=== PATIENT | male | born 1940 | race Caucasian/White ===

== ENCOUNTER 2022-11-03 06:05 | Observation (INO) ==
--- NOTE | 2022-09-29 13:05 | PAT Medication Instructions ---
Medication Instructions Date of Service September 29, 2022 Home Medications carvedilol 6.25 mg tablet 6.25 mg PO BID cholecalciferol (vitamin D3) 50 mcg (2,000 unit) capsule (Vitamin D3) 50 mcg PO HS clopidogrel 75 mg tablet 75 mg PO QAM hydrocodone 10 mg-acetaminophen 325 mg tablet 0.5 tab PO TID PRN levothyroxine 50 mcg tablet 50 mcg PO QAM losartan 25 mg tablet 25 mg PO QAM multivitamin 1 tab PO QAM niacin 500 mg tablet 500 mg PO QPM rivaroxaban 10 mg tablet (Xarelto) 10 mg PO QAM rosuvastatin 10 mg tablet 10 mg PO HS ASK your prescriber and surgeon clopidogrel 75 mg tablet 75 mg PO QAM(in order for spinal or epidural anesthesia, Plavix needs to be stopped 7 days before surgery. Please check if okay with doctor that prescribes this to you) rivaroxaban 10 mg tablet (Xarelto) 10 mg PO QAM(in order for spinal or epidural anesthesia, Xarelto needs to be stopped 72 hours/3 days before surgery. Please check if okay with doctor that prescribes this to you) STOP taking 48 hours before surgery niacin 500 mg tablet 500 mg PO QPM DO NOT take the morning of surgery losartan 25 mg tablet 25 mg PO QAM multivitamin 1 tab PO QAM Take morning of surgery With a small sip of water, OTHERWISE NOTHING TO EAT OR DRINK AFTER MIDNIGHT: carvedilol 6.25 mg tablet 6.25 mg PO BID hydrocodone 10 mg-acetaminophen 325 mg tablet 0.5 tab PO TID PRN(if needed) levothyroxine 50 mcg tablet 50 mcg PO QAM Take evening before surgery carvedilol 6.25 mg tablet 6.25 mg PO BID cholecalciferol (vitamin D3) 50 mcg (2,000 unit) capsule (Vitamin D3) 50 mcg PO HS hydrocodone 10 mg-acetaminophen 325 mg tablet 0.5 tab PO TID PRN(if needed) rosuvastatin 10 mg tablet 10 mg PO HS Other Notes If you have any questions please call us at [phone] or [phone] or [phone] or [phone]
--- NOTE | 2022-10-07 13:32 | Anesthesiology Consultation ---
Date of Service October 07, 2022 Assessment & Plan (1) Encounter for pre-operative examination: Chart Review Chart Review: Acceptable Risk for Surgery (pending most recent PCP note and response for cardio re: Plavix and Xarelto) and Patient seen in Pre Admission Testing - Please obtain most recent PCP note from 10/06/22 (Dr. Vargas- [place]) - Awaiting response from cardio re: Plavix and Xarelto instructions -did call to see if patient can hold Plavix x 7 days and Xarelto x 3 days in order to be a candidate for SAB- awaiting response Has had SAB x 2 ([facility] and [place]) for kidney stones - was not effective- pat ient hesitant to have SAB - will discuss with anesthesiologist DOS - Due to age and PMH- patient is NOT an ideal OPJ candidate Per PAT appt on 10/07/22, patient denies any recent travel. No recent Covid exposures, Covid related symptoms, or recent Covid positive tests. Pt is vaccinated for Covid. Will leave to surgeon's discretion if preop Covid testing needed. Educated on importance of using Covid precautions one week prior to surgery Per cardio letter 10/06/22= Patient is considered "intermediate cardiac risk" for upcoming procedure. Recommend holding Plavix x 5 days and Xarelto x 3 days. Resume medications as soon as possible after surgery. Seen by cardio 04/22/22= Seen for routine follow-up. Patient doing well. CAD/previous PCI most recent 2020no chest pain symptomsactivity severely limited by severe right knee pain. If he does need surgical intervention he would be considered low to intermediate risk and can proceed. Dyslipidemiaon statin. Antiplatelet therapy with Plavix (no aspirin given the chronic use of Xarelto for PE). Hypertensionwell-controlled. Hypothyroidismon medication. Nonrheumatic mitral regurgitationclinically stable. Teaching & Discussion Pre-Anesthesia Teaching/Discussion Notes: Instructed NPO after midnight before surgery,except medications with 15 cc of water. Medication instructions provided according to the PAT guidelines. History Surgery Operation Date: 11/03/22 12:10 Proposed Procedures p Left Total Knee Arthroplasty - Chi Pennington DO Height/Weight Height: 5 ft 11 in Weight: 116.8 kg Allergies Allergy/AdvReac Type Severity Reaction Status Date / Time celecoxib [From Celebrex] Allergy Unknown ANKLE Verified 09/29/22 09:10 SWELLING tamsulosin [From Flomax] Allergy Unknown MASS IN Verified 09/29/22 09:10 BREAST ticagrelor [From Brilinta] Allergy Unknown "couldn't Verified 09/29/22 09:20 breathe" Medications Home Medications Medication Instructions Recorded Confirmed Last Taken carvedilol 6.25 mg tablet 6.25 mg PO BID 09/29/22 09/29/22 Unknown cholecalciferol (vitamin D3) 50 50 mcg PO HS 09/29/22 09/29/22 Unknown mcg (2,000 unit) capsule (Vitamin D3) clopidogrel 75 mg tablet 75 mg PO QAM 09/29/22 09/29/22 Unknown hydrocodone 10 mg-acetaminophen 0.5 tab PO TID PRN Pain 09/29/22 09/29/22 Unknown 325 mg tablet levothyroxine 50 mcg tablet 50 mcg PO QAM 09/29/22 09/29/22 Unknown losartan 25 mg tablet 25 mg PO QAM 09/29/22 09/29/22 Unknown multivitamin 1 tab PO QAM 09/29/22 09/29/22 Unknown niacin 500 mg tablet 500 mg PO QPM 09/29/22 09/29/22 Unknown rivaroxaban 10 mg tablet (Xarelto) 10 mg PO QAM 09/29/22 09/29/22 Unknown rosuvastatin 10 mg tablet 10 mg PO HS 09/29/22 09/29/22 Unknown Past Medical History Medical History CAD (coronary artery disease) S/p cardiac stents - 03/2020- MALGORZATA to Cx 02/2018- MALGORZATA to LAD 2005- MALGORZATA to RCA History of colon cancer 1998- s/p colon resection- no chemo or radiation History of renal stone multiple in the past - no recent issues History of skin cancer HTN (hypertension) Hx of deep venous thrombosis ~2019 behind right knee Hx pulmonary embolism ~2019 Hyperlipidemia Hypothyroidism On anticoagulant therapy plavix and xarelto Exercise / Class Metabolic Activity III < 4 Walking/Shop/Light housework (no chest pain or SOB with flat surface, short distance ambulation ) Past Family History Family History Other No family history of adverse response to anesthesia Past Surgical History Surgical History History of colon resection 1998 History of right knee joint replacement 05/2021- [facility] Hx of arthroscopic knee surgery b/l Hx of cardiac catheterization has had 2 in the past, unsure what year first was; last one was 2020 x 2 stents- [facility] [place] w/ Dr seth Hx of cholecystectomy Hx of colonoscopy Hx of cystoscopy kidney stone retrieval Hx of decompression of ulnar nerve b/l elbow Hx of excision of mass breast Hx of fusion of cervical spine Hx of hernia repair x 3 Hx of lithotripsy Past Anesthesia History No Hx of Anesthesia Complications (with exception to ineffective SAB with urology procedures ) and No Family Hx of Anesthesia Complications History of PONV No Hx of PONV and No Hx of Motion Sickness Social History Smoking Status: Never smoker Do You Dip or Chew Tobacco: No Hx Alcohol Use: No Hx Substance Use: No substance use type: does not use Review of Systems - GERD- occ- no meds needed - Hx of snoring- no witnessed apnea - no hx of sleept study Patient denies chest pain, shortness of breath, dyspnea on exertion, cough, wheezing, palpitations. No hx of seizures, stroke, apnea/snoring. No hx of blood transfusions Physical Exam Vital Signs VITALS BP 180/90 (manually) P 56 TEMP 98.5 SP02 97% RESP 16 Constitutional no acute distress ENMT Mouth: + small oral opening; no TMJ clicking Thyromental Distance: > or= 3.5 Finger Breadths (3.5) Mallampati Class: II Full dentures on top and bottom Neck + limited neck extension Respiratory normal respiratory effort; no respiratory distress Auscultation: lungs clear to auscultation bilaterally; no wheezes Cardiovascular Rate/Rhythm: regular rate and regular rhythm Heart Sounds: no murmur Vessels: no carotid bruit Musculoskeletal Spine: + pain with cervical ROM Extremities: extremities normal to inspection Psychiatric Orientation: alert Lab Results Anesthesia Preop Results Results Anesthesia Widget: WBC 5.69 K/ul (4.8-10.8) 10/07/22 Hgb 11.2 g/dl (14.0-18.0) L 10/07/22 Hct 34.9 % (42.0-52.0) L 10/07/22 Plt 157 K/uL (130-400) 10/07/22 Na 141 mmol/L (136-145) 10/07/22 K 3.8 mmol/L (3.5-5.1) 10/07/22 Cl 108 mmol/L (98-107) H 10/07/22 CO2 28 mmol/L (21-32) 10/07/22 BUN 10 mg/dl (6-23) 10/07/22 Creat 0.86 mg/dl (0.6-1.4) 10/07/22 Glucose Level 103 mg/dl (70-99(Fasting)) H 10/07/22 PT 11.9 Seconds (9.0-12.0) 10/07/22 PTT 32.8 Seconds (21.0-31.0) H 10/07/22 INR 1.1 (0.9-1.1) 10/07/22 Blood Type O Positive 10/07/22 Antibody Screen NEGATIVE 10/07/22 Testing Electrocardiogram Date: 10/07/22 Findings: + SB @ (52bpm ) Otherwise normal EKG per cardio Chest X-Ray Date: 10/07/22 Findings: + NAD FINDINGS: Mild eventration of the right hemidiaphragm. Mild subsegmental bibasilar atelectasis/scarring. Cardiac silhouette is upper limits of normal in size. No pneumothorax, pleural effusion, airspace consolidation or pulmonary edema. Degenerative changes of the shoulders and spine. The cervical spinal fusion hardware with directly changes. Surgical clips of the upper abdomen. Echocardiogram Date: 10/16/21 EF: 55% LV Function: normal RWMA: + none Other Findings: + LVH (Borderline ) and + diastolic dysfunction (Grade I ) Mild to moderate right ventricular enlargement Mild to moderate left atrial enlargement Mild right atrial enlargement Mild AR. Mild TR Borderline pulm HTN - PASP 32-37mmHg Ascending aorta is dilatedat 3.7 cm Stress Test Date: 03/13/21 Type: nuclear Based upon EKG criteria this test is negative. Based upon the nuclear imaging findings there is no evidence of myocardial ischemia or infarction Study is normal. Cardiac Catheterization Date: 04/10/20 LM = mild diffuse irregularity without flow-limiting lesions LAD = has early mid segment patent stent without an in-stent stenosis; mid to distal LAD 40% Circumflex = 80 to 85% hazy calcific eccentric stenosis RCA = diffuse 20% in-stent restenosis, proximal to stentthere is about 30% diffuse stenosis Conclusions: Single-vessel obstructive CAD of the left circumflex coronary artery. PCI with MALGORZATA of left circumflex coronary artery.
--- NOTE | 2022-10-30 14:26 | History & Physical Report ---
Date of Service October 30, 2022 Assessment & Plan (1) Osteoarthritis of left knee: We will proceed with a left total knee arthroplasty. Postoperatively he will be started on anticoagulation and kept overnight in the hospital for postop medical management. History of Present Illness Chief Complaint: Osteoarthritis of the left knee Primary Care Provider: Poncho Anguiano is a pleasant 81-year-old male who was dealing with severe arthritis of both knees. He had a right knee replacement done by Dr. Rios in May of 2021. He has not done well postoperatively. He had a full workup from Dr. Rios, which showed no signs of infection. He has range of motion from 15 to 100 degrees. I sent him for a bone scan and the bone scan showed some questi onable loosening but was otherwise negative. His left knee is actually bothering him more. X-rays have shown advanced osteoarthritis of the left knee. After failing conservative treatment, he has elected proceed with a left total knee arthroplasty. Allergies Allergy/AdvReac Type Severity Reaction Status Date / Time celecoxib [From Celebrex] Allergy Unknown ANKLE Verified 09/29/22 09:10 SWELLING tamsulosin [From Flomax] Allergy Unknown MASS IN Verified 09/29/22 09:10 BREAST ticagrelor [From Brilinta] Allergy Unknown "couldn't Verified 09/29/22 09:20 breathe" Home Medications Medication Instructions Recorded Confirmed Type carvedilol 6.25 mg tablet 6.25 mg PO BID 09/29/22 09/29/22 History cholecalciferol (vitamin D3) 50 50 mcg PO HS 09/29/22 09/29/22 History mcg (2,000 unit) capsule (Vitamin D3) clopidogrel 75 mg tablet 75 mg PO QAM 09/29/22 09/29/22 History hydrocodone 10 mg-acetaminophen 0.5 tab PO TID PRN Pain 09/29/22 09/29/22 History 325 mg tablet levothyroxine 50 mcg tablet 50 mcg PO QAM 09/29/22 09/29/22 History losartan 25 mg tablet 25 mg PO QAM 09/29/22 09/29/22 History multivitamin 1 tab PO QAM 09/29/22 09/29/22 History niacin 500 mg tablet 500 mg PO QPM 09/29/22 09/29/22 History rivaroxaban 10 mg tablet (Xarelto) 10 mg PO QAM 09/29/22 09/29/22 History rosuvastatin 10 mg tablet 10 mg PO HS 09/29/22 09/29/22 History Past Med/Surg History Medical History CAD (coronary artery disease) S/p cardiac stents - 03/2020- MALGORZATA to Cx 02/2018- MALGORZATA to LAD 2006- MALGORZATA to RCA History of colon cancer 1998- s/p colon resection- no chemo or radiation History of renal stone multiple in the past - no recent issues History of skin cancer HTN (hypertension) Hx of deep venous thrombosis ~2019 behind right knee Hx pulmonary embolism ~2019 Hyperlipidemia Hypothyroidism On anticoagulant therapy plavix and xarelto Surgical History History of colon resection 1998 History of right knee joint replacement 05/2021- [facility] Hx of arthroscopic knee surgery b/l Hx of cardiac catheterization has had 2 in the past, unsure what year first was; last one was 2020 x 2 stents- [facility] [place] follows w/ Dr seth Hx of cholecystectomy Hx of colonoscopy Hx of cystoscopy kidney stone retrieval Hx of decompression of ulnar nerve b/l elbow Hx of excision of mass breast Hx of fusion of cervical spine Hx of hernia repair x 3 Hx of lithotripsy Family History Other No family history of adverse response to anesthesia Social History Smoking Status: Never smoker Second Hand Exposure: No; Do You Dip or Chew Tobacco: No; Hx Alcohol Use: No Hx Substance Use: No Preferred Language: Bangladeshi Communication Ability: Effective Transportation Equipment Painter Required: No Beliefs That Will Affect Care: None Current Living Situation: Spouse Feels Safe at Home: Yes Assistive Devices: Cane, Denture - Upper, Denture - Lower, Glasses and Walker Review of Systems All systems reviewed & are unremarkable except as noted in HPI & below. Physical Exam On physical examination of the left knee, he has a varus deformity. His range of motion from 5 to 100 degrees. No instability. Pain over the distal medial femoral condyle.. Constitutional WD/WN, vitals as above Eyes PERRL, conjunctivae normal, anicteric sclerae ENMT external ear and nose normal, oropharynx normal Neck trachea midline, no thyromegaly Respiratory normal respiratory effort, lungs clear to auscultation Cardiovascular RRR, no murmur, no edema Gastrointestinal (Abdomen) normal bowel sounds, soft, nontender, no hepatosplenomegaly Skin no rashes, warm and dry Psychiatric A+Ox3, euthymic affect Results & Data Results & Data Laboratory Results . Diagnostic Findings X-rays of the left knee show advanced osteoarthritis with joint space narrowing, osteophyte formation, and [id number] articulation. PG Care Time/CCT Total # of Minutes Spent Total Time Spent with Patient: Total time spent is greater than 50% in coordination of care (as documented) at patient's floor/unit and/or counseling patient: Coding Level of Care Code None Diagnoses Osteoarthritis of left knee M17.12
[~2022-11-03 06:05] MED LIST: ACETAMINOPHEN 500 MG TAB PO SCH; CLONIDINE HCL IV SCH; DEXAMETHASONE IV SCH; FAMOTIDINE 20 MG TAB PO SCH; GABAPENTIN 300 MG CAP PO SCH; KETAMINE HCL IV SCH; LR 500ML BOLUS, THEN 15ML/HR IV SCH; LR 60ML/HR IV SCH; ORTHO JOINT MIX INFIL SCH; SODIUM CHLORIDE 0.9% 1,000 ML IV SCH; TRANEXAMIC ACID 1,000 MG **IV Intra-op IV SCH; TRANEXAMIC ACID 1,000 MG **IV Pre-op IV SCH; [UNRECOGNIZED DRUG - OTHER] IV SCH; ceFAZolin 2000MG 2,000 MG/15 ML SYR IV SCH; dexAMETHasone 4 MG TAB PO SCH
--- NOTE | 2022-11-03 06:33 | History & Physical Bridge Note ---
Date of Service November 03, 2022 History & Physical Bridge Note I have examined the patient, reviewed the History & Physical and in the interval since the performance of the History & Physical I have noted the following changes of clinical significance: no changes noted
[2022-11-03] MEDS ORDERED: BUPIVACAINE 0.5 % 5 MG/1 ML PF 10ML VIAL ONE (07:03)
[2022-11-03] MEDS ORDERED: ROPIVACAINE 0.5% 5 MG/ML 30 ML VIAL ONE (07:03)
[2022-11-03] MEDS ORDERED: ePHEDrine sulfate 50 MG/ML AMP IV PRN (07:14)
[2022-11-03] MEDS ORDERED: ONDANSETRON INJ 2 MG/ML 2 ML VIAL IV PRN ×2 (07:14→11:39)
[2022-11-03] MEDS ORDERED: ATROPINE SULFATE 0.1 MG/ML 10ML SYR IV PRN (07:14)
[2022-11-03] MEDS ORDERED: fentaNYL citrate PF 100 MCG/2 ML VIAL IV PRN (07:14)
[2022-11-03] MEDS ORDERED: fentaNYL citrate PF 100 MCG/2 ML VIAL ONE (08:13)
[2022-11-03] MEDS ORDERED: PROPOFOL IV EMULSION 10 MG/ML 20 ML VIAL IV ONE (10:15)
--- NOTE | 2022-11-03 10:18 | Operative Report ---
PG Post Operative Report Pre & Post Diagnosis Operation Date: 11/03/22 08:40 Pre-Op Diagnosis: Osteoarthritis of left knee Post-Op Diagnosis: Osteoarthritis of left knee I identified the patient and participated in the time-out.: Yes Procedure Operation Date: 11/03/22 08:40 Actual Procedures p Left total knee arthroplasty, cemented(Left) - Chi Penningtno DO Surgeon Chi Pennington DO Supervisor [employer] Chi Ireland PA-C Estimated Blood Loss 30 Findings Consistent with Post-Op Diagnosis Specimens Left femoral tibial bone Description of Procedure Implants used: I used a Tiffani Persona total knee arthroplasty system with a size 9 standard femur, F tibia with a 30 mm stem extension, 34 oval patella, and a size 12 CPS polyethylene bearing. All components were cemented in place with Biomet cement. Silvio arrived [facility] for the above procedure. He was seen in the preoperative holding area and the operative extremity was identified and signed. He was given a preoperative antibiotic, TXA, a spinal anesthetic and an adductor nerve block. He was taken back to the operating room and laid on the table in supine position. He was given basic sedation. The operative knee was then prepped and draped in sterile fashion. A timeout was done, and the patient and the operative extremity was properly identified. A midline incision was made directly over the patella. Dissection was taken down to the extensor mechanism. A midvastus arthrotomy was used. The medial retinaculum was released and the fat pad was mostly excised. The knee was flexed and the ACL, PCL, and meniscus were removed. A drill was sent down the center of the femoral canal followed by an intramedullary mar. Off that mar a distal femoral cutting block was placed. 9 mm was resected off the distal femur at 5 of valgus. A posterior referencing AP sizing guide was then placed on the distal femur. The femur measured to be a size 9. 2 drill holes were placed in 3 of external rotation. A 4-in-1 cutting block was then impacted into place. Anterior, posterior, and chamfer cuts were then made. The proximal tibia was then exposed. An external tibial alignment guide was placed. A tibial cut guide was then anchored in place and the proximal tibia was then resected. The posterior aspect of the knee was then opened up and any additional meniscus fragments and osteophytes were removed. The tibia measured to be a size F. The tibial plate was then placed in the appropriate rotation and the tibia was drilled and punched. Trial components were then placed. I used a size 12 CPS polyethylene insert. The knee was brought through a full range of motion and felt to be stable. The peg holes for the femoral component were then drilled. The patella was then everted and 9 mm was resected off the posterior aspect of the patella. The patella measured to be a size 34 oval. 3 peg holes were then drilled. A trial patella was placed. The knee was once again brought through a full range of motion and felt to be stable. Trial components were then removed. The surrounding soft tissues were injected with 100 cc of an orthopedic pain control cocktail. All components were then cemented into place with Biomet cement. The final polyethylene insert was then snapped into place. Once cement was dry the tourniquet was deflated. Hemostasis was obtained. Surgiphor Betadine lavage was used throughout the case. The joint was then irrigated with normal saline solution. The midvastus arthrotomy was then closed with #1 Vicryl suture. The skin was closed with 2-0 Vicryl, 3-0V lock suture, and celio. A soft compressive dressing was placed. He was then transferred to a hospital bed and taken to the postanesthesia care unit in stable condition. He tolerated the procedure well. Chi Ireland PA-C, was present for the entire procedure. He was critical for patient positioning, prepping, draping, retraction exposure, wound closure and application of sterile dressing. I attest to the content of the Intraoperative Record and any orders documented therein. Any exceptions are noted below.
[2022-11-03] MEDS ORDERED: KETOROLAC 30 MG/ML VIAL ONE (10:47)
[2022-11-03] MEDS ORDERED: LR 500ML BOLUS, THEN 15ML/HR IV SCH (11:00)
--- NOTE | 2022-11-03 11:18 | XRay Report ---
TWO VIEWS LEFT KNEE CLINICAL HISTORY: Postoperative examination. FINDINGS: AP and crosstable lateral portable views of the left knee are obtained. A left knee arthrop lasty is in near anatomic alignment. There has been undersurface remodeling of the patella. No acute fracture is seen. There are expected postoperative changes around the knee including skin clips, soft tissue edema, and subcutaneous gas. IMPRESSION: Expected postoperative changes status post left knee arthroplasty. No acute fracture is s een. ACT 112: Negative or not required by law. Electronically signed by: Teodoro Guillermo M.D. 11/03/2022 11:16 AM
[2022-11-03] MEDS ORDERED: MAGNESIUM HYDROXIDE SUSP 30 ML UDC PO PRN (11:39)
[2022-11-03] MEDS ORDERED: METOCLOPRAMIDE HCL INJ 5 MG/ML 2 ML VIAL IV PRN (11:39)
[2022-11-03] MEDS ORDERED: bisacodyL 10 MG SUPP PR PRN (11:39)
[2022-11-03] MEDS ORDERED: NALOXONE HCL 0.4 MG/1 ML VIAL/CARP IV PRN (11:39)
[2022-11-03] MEDS: ALLERGY Noted to ORDERED Medication SCH ×4 (11:57→12:00)
[2022-11-03] MEDS ORDERED: SODIUM CHLORIDE 0.9% 1000ML 1,000 ML IV SCH (12:00)
--- NOTE | 2022-11-03 12:45 | Anesthesiology Progress Note ---
Date of Service November 03, 2022 Anesthesia Post Procedure Vital Signs Vital Signs: Temp Pulse Pulse Resp BP Pulse Ox O2 Del Method 11/03/22 12:27 97.5 F L 47 L 17 165/81 H 96 Room Air 11/03/22 11:42 97.3 F L 45 L 18 166/82 H 95 Room Air 11/03/22 11:25 97.5 F L 47 L 12 146/77 H 99 Room Air 11/03/22 11:05 48 L 19 138/75 93 Room Air 11/03/22 11:15 49 L 24 135/69 93 Room Air 11/03/22 10:55 47 L 24 149/76 H 92 Room Air 11/03/22 10:45 97.3 F L 51 L 18 132/72 97 Oxymask 11/03/22 06:40 98.1 F 46 L 16 201/86 H 96 Room Air O2 Flow Rate 11/03/22 12:27 11/03/22 11:42 11/03/22 11:25 11/03/22 11:05 11/03/22 11:15 11/03/22 10:55 11/03/22 10:45 5 11/03/22 06:40 Pain Intensity Left Knee: Pain Intensity: 2 Transfer of Care Handoff Completed per policy Notes Mental Status: alert / awake / arousable and participated in evaluation Patient Amnestic to Procedure: Yes Nausea / Vomiting: adequately controlled Pain: adequately controlled Airway Patency, RR, SpO2: stable & adequate BP & HR: stable & adequate Hydration State: stable & adequate Neuraxial Anesthesia: was administered and sensory block is resolving Anesthetic Complications: no major complications apparent and Pt Satisfied with anesthetic care
[2022-11-03] MEDS: ACETAMINOPHEN 500 MG TAB PO SCH ×2 (13:40→21:07)
[2022-11-03] MEDS: oxyCODONE HCL IR 5 MG TAB (IMMEDIATE RELEASE) PO PRN ×2 (13:41→19:44)
[2022-11-03] MEDS: HYDROmorphone INJ 0.5 MG/0.5 ML SYR IV PRN (15:26)
[2022-11-03] MEDS: ceFAZolin 2000MG 2,000 MG/15 ML SYR IV SCH (16:00)
[2022-11-03] MEDS: carvediloL 6.25 MG TAB PO SCH (20:33)
[2022-11-03] MEDS: DOCUSATE SODIUM 100 MG CAP PO SCH (20:33)
[2022-11-03] MEDS ORDERED: SENNA 8.6 MG TAB PO SCH (21:00)
[2022-11-03] MEDS ORDERED: ROSUVASTATIN CALCIUM 10 MG TAB PO SCH (21:00)
[2022-11-04] MEDS: ceFAZolin 2000MG 2,000 MG/15 ML SYR IV SCH (00:30)
[2022-11-04] MEDS: HYDROmorphone INJ 0.5 MG/0.5 ML SYR IV PRN ×3 (00:36→10:41)
[2022-11-04] MEDS: oxyCODONE HCL IR 5 MG TAB (IMMEDIATE RELEASE) PO PRN ×3 (03:16→15:51)
[2022-11-04] MEDS: ACETAMINOPHEN 500 MG TAB PO SCH ×2 (05:28→13:06)
[2022-11-04] MEDS ORDERED: LEVOTHYROXINE SODIUM 50 MCG TABLET PO SCH (06:30)
--- NOTE | 2022-11-04 07:04 | Orthopedic Progress Note ---
Date of Service November 04, 2022 Assessment & Plan (1) Status post left knee replacement: Overall he is doing very well. He is not having much pain in the left knee. He will be seen by physical therapy today for ambulation and range of motion exercises. He is on Eliquis and Plavix for DVT prophylaxis. He can be discharged to a nursing facility later today. He will follow-up orthopedics in 2 weeks. Driss Anguiano was seen and examined at bedside this morning. Overall is doing fairly well. He is not having much pain in the left knee. He has been up and ambulating to the bathroom. Has no complaints.. Review of Systems All systems reviewed & are unremarkable except as noted in HPI & below. Physical Exam On physical examination of the left knee, the dressing is clean and dry. His leg is out full extension. He has active dorsiflexion plantarflexion of his left ankle.. Results & Data Results & Data Laboratory Results . Diagnostic Findings Postoperative x-rays of the left knee show the prosthesis to be in anatomic alignment without any evidence of fracture, desiccation, or loosening.. PG Care Time/CCT Total # of Minutes Spent Total Time Spent with Patient: Total time spent is greater than 50% in coordination of care (as documented) at patient's floor/unit and/or counseling patient: Coding Level of Care Code 70078 Post Operative Follow-Up Diagnoses Status post left knee replacement Z96.652
--- NOTE | 2022-11-04 07:05 | Discharge Summary ---
Date of Service November 04, 2022 Admission HPI (Per Admitting) Silvio is a pleasant 81-year-old male who was dealing with severe arthritis of both knees. He had a right knee replacement done by Dr. Rios in May of 2021. He has not done well postoperatively. He had a full workup from Dr. Rios, which showed no signs of infection. He has range of motion from 15 to 100 degrees. I sent him for a bone scan and the bone scan showed some questionable loosening but was otherwise negative. His left knee is actually bothering him more. X-rays have shown advanced osteoarthritis of the left knee. After failing conservative treatment, he has elected proceed with a left total knee arthroplasty. Admission Exam (Per Admitting) On physical examination of the left knee, he has a varus deformity. His range of motion from 5 to 100 degrees. No instability. Pain over the distal medial femoral condyle.. Principal Diagnosis Same as "Discharge Diagnosis" noted below under Discharge Instructions. Discharge Exam On physical examination of the left knee, the dressing is clean and dry. His leg is out full extension. He has active dorsiflexion plantarflexion of his left ankle.. Discharge Data Procedures Performed Operation Date: 11/03/22 08:40 Actual Procedures p Left total knee arthroplasty, cemented(Left) - Chi Pennington DO Ordered Studies 11/03/22 05:00 US - OR guided needle placemen Routine Hospital Course (1) Status post left knee replacement: On November 03, 2022 Silvio arrived at [facility] and underwent a left knee replaced without complication. He had a spinal anesthetic. Postoperatively he was started on Eliquis and Plavix for DVT prophylaxis and transferred to the general orthopedic floors. His hospital course was uneventful. On postop day #1, his vital signs were stable and his pain was well controlled. He was able to participate well with physical therapy doing ambulation and range of motion exercises. He was then discharged home. He will follow-up with orthopedics in 2 weeks. PG Care Time/CCT Total # of Minutes Spent Total Time Spent with Patient: Total time spent is greater than 50% in coordination of care (as documented) at patient's floor/unit and/or counseling patient: Discharge Plan Discharge Items Patient Disposition: Transfer Correction Fac Reason For Visit: DJD Knee Left Discharge Diagnosis: Left knee replacement Activity: Per Instructions section Non-emergency contact: Surgeon Call non-emergency contact if: your wound has increased redness and your wound has increased drainage Follow-up/Referrals: Poncho Vargas M.D. [Primary Care Provider] - Diet: Regular Addtl Attending Provider Instructions: Activity and Therapy Recommendations: * If you are using [facility] then therapy will be provided at your home until they feel you have accomplished all of your goals. * If you are using [facility] then Physical Therapy will be provided until they feel you are ready to start Outpatient Physical Therapy. * If you are not using home therapy then Outpatient Physical Therapy should start about 3-5 days from your day of surgery. Therapy will last about 6-10 weeks * It is important not to put a pillow under your knee when you are relaxing or sleeping. It is just as important to make sure you are getting your knee perfectly straight as it is to regain your knee bend. * You were shown a series of exercises in the hospital. Do these exercises three times each day including the exercises you were shown in physical therapy. * Get up and walk several times each day. For the first four weeks, try not to stand or walk for more than one hour at a time. If you do stand or walk for more than one hour, you will not hurt anything, but your leg will likely swell. * As you feel comfortable, you may change from the walker or crutches to a cane and then to independent walking. Medications: * Narcotic You will likely be sent home from the hospital with a prescription for the narcotic pain medication that worked best throughout your stay. * Continue your Eliquis and Plavix as prescribed. * Other medications may be prescribed for specific circumstances. If you have any questions, please call the office at . * Resume previous home medications unless otherwise instructed TEDs/Elastic Stockings: The white elastic stockings help limit swelling and prevent blood clots from forming in your legs.~ The more you wear them, the more they work. Wear them for six weeks. Dressing Care: The dressing can be changed after physical therapy on postop day #1. Daily dry dressing changes for a few days, especially if the incision is still draining some. If the incision is not draining then you may leave the celio open to air. If there is a little bit of drainage or if the celio are getting stuck on your clothing then cover the incision with a dry dressing. The celio will be removed at your 2 week follow-up appointment. Showering: You may shower 5 days from the day of surgery as long as the incision is no longer draining. You may shower with the celio exposed. Let soapy water run over the celio and pat them dry. Do not scrub or soak the incision. Things To Watch For: * Drainage from the incision site that occurs more than one week after your surgery. * Increased redness at the incision site. * Fever above 102 degrees Fahrenheit. * Unusual chest pain or shortness of breath. * Call [facility] at with any of the above problems Follow-Up Visit: Follow-up with Dr. Pennington's PA (Chi Ireland) 2-3 weeks after your day of surgery . He will remove your celio and answer any questions. If you have any additional questions or concerns, Dr Pennington is usually in the office at the same time and will be available An appointment was probably scheduled when you signed-up for surgery in the office. If you have any questions call Office Instructions: More detailed instructions as well as Frequently Asked Questions were provided in a folder by our office when you signed-up for surgery. Please review these instructions when you get home. If you have any further questions or concerns, please feel free to call the office at [phone] Pending Studies at Discharge: No Stand-Alone Forms: My [facility] Skilled Items Patient informed of condition?: Yes DNR: No Discharge Level of Care: Skilled Communicable Disease: No Discharge Prognosis: Improving Lines: None Urinary Catheter: No Medications and DC Order Prescriptions: Continued multivitamin Tablet 1 tab PO QAM carvedilol 6.25 mg Tablet 6.25 mg PO BID Rx Instructions: must administer with a meal/food clopidogrel 75 mg Tablet 75 mg PO QAM levothyroxine 50 mcg Tablet 50 mcg PO QAM losartan 25 mg Tablet 25 mg PO QAM niacin 500 mg Tablet 500 mg PO QPM rosuvastatin 10 mg Tablet 10 mg PO HS cholecalciferol (vitamin D3) [Vitamin D3] 50 mcg (2,000 unit) Capsule 50 mcg PO HS Xarelto 10 mg Tablet 10 mg PO QAM Rx Instructions: for 35 days Discontinued hydrocodone-acetaminophen 10-325 mg Tablet 0.5 tab PO TID PRN (Reason: Pain) Discharge Orders: Discharge Order (Routine); Ordered 11/04/22 Ordered By: Chi Pennington Admission Data Admit Date/Time: 11/03/22 10:38 Attending Provider: Chi Pennington Admit Provider: Chi Pennington Primary Care Provider: Poncho Vargas
[2022-11-04] MEDS ORDERED: dexAMETHasone 4 MG TAB PO SCH (08:00)
[2022-11-04] MEDS: carvediloL 6.25 MG TAB PO SCH (08:08)
[2022-11-04] MEDS: DOCUSATE SODIUM 100 MG CAP PO SCH (08:09)
[2022-11-04] MEDS ORDERED: LOSARTAN POTASSIUM 25 MG TAB PO SCH (09:00)
[2022-11-04] MEDS ORDERED: MULTIVITAMIN TAB PO SCH (09:00)
[2022-11-04] MEDS ORDERED: RIVAROXABAN 10 MG TABLET PO SCH (09:00)
[2022-11-04] MEDS ORDERED: CLOPIDOGREL BISULFATE 75 MG TAB PO SCH (09:00)
== END 2022-11-04 16:42 ==
LOC: 3E 06:05 → ASU 06:05

== ENCOUNTER 2023-01-05 10:54 | Observation (INO) ==
--- NOTE | 2023-01-01 10:13 | Anesthesiology Consultation ---
Date of Service January 01, 2023 Assessment & Plan (1) Encounter for pre-operative examination: Chart Review Chart Review: Acceptable Risk for Surgery (pending DOS labs ) and Patient NOT seen in Pre Admission Testing - Check CBC with diff and PRP stat DOS (not done preoperatively) -Infectious Disease screening: Per [facility] nursing assessment on 01/01/23. No known infectious disease contacts in past 10 days or current infectious disease symptoms. No recent travel outside the country. Left TKA 11/03/22= Done under SAB at L3-4 with three attempts Seen by cardio 10/24/22 (prior to left TKA 10/2022) = Seen for follow-up. Patient doing well. CAD/previous PCI most recent chest pain symptomsactivity severely limited by severe right knee pain. If he does need surgical intervention he would be considered low to intermediate risk and can proceed. Dyslipidemiaon statin. Antiplatelet therapy with Plavix (no aspirin given the chronic use of Xarelto for PE). Generally speaking holding Plavix for 5 days is all that is neededhowever the team doing the spinal surgery would prefer 7 daysdo believe this is still relatively low risk and would be okay with mediscussed with patient directly. Last stent angina. DVT/PEon Xarelto. Short-term interruption of Xarelto2 to 3 days is very low risk and if that is necessary to allow procedure that is deemed necessary and beneficial to certainly reasonable. Hypertensionwell-controlled until pain is like acute severe. Continue current medications at this time. Suspect once pain improved BP will normalize. Hypothyroidismon medication. Nonrheumatic mitral regurgitationclinically stable. Severe DJD in both kneesstatus post surgery on right knee but did not improve symptomsfollowing with Ortho. Patient seen by PCP 10/06/22 (prior to left TKA 10/2022) =Scheduled for surgery 11/03/2022.Osteoarthritis of left kneemedically stable for knee replacement. Atherosclerosis of coronary arterycontinue medications. Stable/cardiac status stable. Hypothyroidismstable. Chronic diastolic CHFstableecho was reviewed. Prediabetesstable. BPHstable. History of PEon Xarelto. Stable. Ambulatory dysfunctiondue to orthopedic issue. Hypertensioncontinue current medications. Teaching & Discussion Pre-Anesthesia Teaching/Discussion Notes: Instructed NPO after midnight before surgery,except medications with 15 cc of water. Medication instructions provided according to the PAT guidelines. History Surgery Operation Date: 01/05/23 13:00 Proposed Procedures p Left Patellar Tendon Repair - Chi Pennington, Height/Weight Height: 5 ft 11 in Weight: 113.398 kg Allergies Allergy/AdvReac Type Severity Reaction Status Date / Time celecoxib [From Celebrex] Allergy Unknown ANKLE Verified 01/01/23 09:02 SWELLING tamsulosin [From Flomax] Allergy Unknown MASS IN Verified 01/01/23 09:02 BREAST ticagrelor [From Brilinta] Allergy Unknown "couldn't Verified 01/01/23 09:02 breathe" Medications Home Medications Medication Instructions Recorded Confirmed Last Taken carvedilol 6.25 mg tablet 6.25 mg PO BID 09/29/22 01/01/23 11/03/22 0400 cholecalciferol (vitamin D3) 50 50 mcg PO HS 09/29/22 01/01/23 10/31/22 mcg (2,000 unit) capsule (Vitamin D3) clopidogrel 75 mg tablet 75 mg PO QAM 09/29/22 01/01/23 10/27/22 levothyroxine 50 mcg tablet 50 mcg PO QAM 09/29/22 01/01/23 11/03/22 04:00 losartan 25 mg tablet 25 mg PO QAM 09/29/22 01/01/23 10/31/22 multivitamin 1 tab PO QAM 09/29/22 01/01/23 10/31/22 niacin 500 mg tablet 500 mg PO QPM 09/29/22 01/01/23 10/31/22 rivaroxaban 10 mg tablet (Xarelto) 10 mg PO QAM 09/29/22 01/01/23 10/29/22 rosuvastatin 10 mg tablet 10 mg PO HS 09/29/22 01/01/23 10/31/22 oxycodone-acetaminophen 5 mg-325 1 tab PO Q6H PRN pain #30 tabs 11/04/22 01/01/23 Unknown mg tablet (Percocet) cefadroxil 500 mg capsule 500 mg PO BID 10 days #20 caps 12/31/22 01/01/23 Unknown Past Medical History Medical History CAD (coronary artery disease) S/p cardiac stents - 03/2020- MALGORZATA to Cx 02/2018- MALGORZATA to LAD 2005- MALGORZATA to RCA History of colon cancer 1998- s/p colon resection- no chemo or radiation History of renal stone multiple in the past - no recent issues History of skin cancer removed HTN (hypertension) Hx of deep venous thrombosis ~2019 behind right knee Hx pulmonary embolism ~2019 Hyperlipidemia Hypothyroidism On anticoagulant therapy plavix and xarelto Past Family History Family History Other No family history of adverse response to anesthesia Past Surgical History Surgical History History of colon resection 1998 History of right knee joint replacement 05/2021- [facility] History of total left knee replacement (TKR) Hx of arthroscopic knee surgery b/l Hx of cardiac catheterization has had 2 in the past, unsure what year first was; last one was 2020 x 2 stents- [facility] [place] w/ Dr seth Hx of cholecystectomy Hx of colonoscopy Hx of cystoscopy kidney stone retrieval Hx of decompression of ulnar nerve b/l elbow Hx of excision of mass breast Hx of fusion of cervical spine ROM "is about 70%" Hx of hernia repair x 3 Hx of lithotripsy Social History Smoking Status: Never smoker Do You Dip or Chew Tobacco: No (quit 1970; advised) Hx Alcohol Use: Yes Alcohol type: beer alcohol intake frequency: holidays/special occasions only Hx Substance Use: No substance use type: does not use Testing Electrocardiogram Date: 10/07/22 Findings: + SB @ (52bpm ) Otherwise normal EKG per cardio Chest X-Ray Date: 10/07/22 Findings: + NAD FINDINGS: Mild eventration of the right hemidiaphragm. Mild subsegmental bibasilar atelectasis/scarring. Cardiac silhouette is upper limits of normal in size. No pneumothorax, pleural effusion, airspace consolidation or pulmonary edema. Degenerative changes of the shoulders and spine. The cervical spinal fusion hardware with directly changes. Surgical clips of the upper abdomen. Echocardiogram Date: 10/16/21 EF: 55% LV Function: normal RWMA: + none Other Findings: + LVH (Borderline ) and + diastolic dysfunction (Grade I ) Mild to moderate right ventricular enlargement Mild to moderate left atrial enlargement Mild right atrial enlargement Mild AR. Mild TR Borderline pulm HTN - PASP 32-37mmHg Ascending aorta is dilatedat 3.7 cm Stress Test Date: 03/13/21 Type: nuclear Based upon EKG criteria this test is negative. Based upon the nuclear imaging findings there is no evidence of myocardial ischemia or infarction Study is normal. Cardiac Catheterization Date: 04/10/20 LM = mild diffuse irregularity without flow-limiting lesions LAD = has early mid segment patent stent without an in-stent stenosis; mid to distal LAD 40% Circumflex = 80 to 85% hazy calcific eccentric stenosis RCA = diffuse 20% in-stent restenosis, proximal to stentthere is about 30% diffuse stenosis Conclusions: Single-vessel obstructive CAD of the left circumflex coronary artery. PCI with MALGORZATA of left circumflex coronary artery.
[~2023-01-05 10:54] MED LIST changes: -CLONIDINE HCL IV SCH; -DEXAMETHASONE IV SCH; -KETAMINE HCL IV SCH; +LR 15ML/HR IV SCH; -LR 500ML BOLUS, THEN 15ML/HR IV SCH; -SODIUM CHLORIDE 0.9% 1,000 ML IV SCH; -[UNRECOGNIZED DRUG - OTHER] IV SCH
[2023-01-05] MEDS ORDERED: PROPOFOL IV EMULSION 10 MG/ML 20 ML VIAL IV ONE ×2 (12:43→14:34)
[2023-01-05] MEDS ORDERED: ONDANSETRON INJ 2 MG/ML 2 ML VIAL ONE (12:43)
[2023-01-05] MEDS ORDERED: DEXAMETHASONE SOD INJ 4 MG/ML VIAL ONE (12:43)
[2023-01-05] MEDS ORDERED: LIDOCAINE 2% 2 ML VIAL/AMP(20MG/ML) INFIL ONE ×2 (12:43→14:35)
[2023-01-05] MEDS ORDERED: MIDAZOLAM HCL 1 MG/ML 2ML VIAL ONE (12:44)
[2023-01-05] MEDS ORDERED: fentaNYL citrate PF 100 MCG/2 ML VIAL ONE ×2 (12:44→14:34)
--- NOTE | 2023-01-05 13:02 | History & Physical Bridge Note ---
Date of Service January 05, 2023 History & Physical Bridge Note I have examined the patient, reviewed the History & Physical and in the interval since the performance of the History & Physical I have noted the following changes of clinical significance: no changes noted
[2023-01-05] MEDS ORDERED: ePHEDrine sulfate 50 MG/ML AMP IV PRN (13:04)
[2023-01-05] MEDS ORDERED: ONDANSETRON INJ 2 MG/ML 2 ML VIAL IV PRN (13:04)
[2023-01-05] MEDS ORDERED: ATROPINE SULFATE 0.1 MG/ML 10ML SYR IV PRN (13:04)
[2023-01-05 13:07] LABS: Basophils # (auto) 0.03 K/uL (0.00-0.20); Basophils % (auto) 0.4 %; Eosinophils # (auto) 0.07 K/uL (0.00-0.50); Eosinophils % (auto) 0.9 %; Hematocrit (blood only) 35.7 % (42.0-52.0); Hemoglobin 11.2 g/dl (14.0-18.0); Immature Granulocytes # (auto) 0.03 K/uL (0.01-0.20); Immature Granulocytes % (auto) 0.4 %; Lymphocytes # (auto) 1.86 K/uL (1.20-3.40); Lymphocytes % (auto) 23.6 %; Mean Corpuscular Hemoglobin 27.9 pg (25.0-34.0); Mean Corpuscular Hgb Conc 31.4 g/dL (32.0-36.0); Mean Corpuscular Volume 88.8 fL (80.0-100.0); Mean Platelet Volume 8.8 fL (9.4-12.4); Monocytes # (auto) 0.59 K/uL (0.11-0.59); Monocytes % (auto) 7.5 %; Neutrophils # (auto) 5.31 K/uL (1.40-6.50); Neutrophils % (auto) 67.2 %; Platelet Count 198 K/uL (130-400); RDW Coefficient of Variation 13.4 % (11.5-14.5); RDW Standard Deviation 44.1 fL (36.4-46.3); Red Blood Count 4.02 M/uL (4.70-6.10); White Blood Count 7.89 K/ul (4.8-10.8)
[2023-01-05] MEDS ORDERED: BUPIVACAINE/EPINEPHRINE 0.5% MPF 1:200,000 30 ML VIAL ONE (13:33)
[2023-01-05] MEDS ORDERED: ROPIVACAINE 0.5% 5 MG/ML 30 ML VIAL ONE (13:50)
[2023-01-05 13:54] LABS: Calcium 9.4 mg/dl (8.6-10.3); Potassium 4.6 mmol/L (3.5-5.1)
[2023-01-05 14:00] LABS: BUN Creatinine Ratio 17.2 (10-20); Creatinine Clr Calc Pharmacy 80.9 ml/min; Est GFR (African American) 92.5 ml/min; Est GFR (Non-African American) 79.8 ml/min
[2023-01-05] MEDS: fentaNYL citrate PF 100 MCG/2 ML VIAL IV PRN ×4 (16:06→16:33)
--- NOTE | 2023-01-05 16:21 | Anesthesiology Progress Note ---
Date of Service January 05, 2023 Anesthesia Post Procedure Vital Signs Vital Signs: Temp Pulse Resp BP Pulse Ox O2 Del Method 01/05/23 11:27 36.3 C L 53 L 20 187/72 H 98 Room Air Pain Intensity Left Knee: Pain Intensity: 3 Transfer of Care Handoff Completed per policy Notes Mental Status: alert / awake / arousable Patient Amnestic to Procedure: Yes Nausea / Vomiting: adequately controlled Pain: adequately controlled Airway Patency, RR, SpO2: stable & adequate BP & HR: stable & adequate Hydration State: stable & adequate Anesthetic Complications: no major complications apparent and Pt Satisfied with anesthetic care
[2023-01-05] MEDS ORDERED: ACETAMINOPHEN 500 MG TAB PO PRN (17:44)
[2023-01-05] MEDS ORDERED: ceFAZolin 2000MG 2,000 MG/15 ML SYR IV ONE (19:00)
[2023-01-05] MEDS: carvediloL 6.25 MG TAB PO SCH (19:46)
[2023-01-05] MEDS: oxyCODONE HCL IR 5 MG TAB (IMMEDIATE RELEASE) PO PRN (19:49)
[2023-01-05] MEDS ORDERED: ROSUVASTATIN CALCIUM 10 MG TAB PO SCH (21:00)
[2023-01-05] MEDS ORDERED: NIACIN 500 MG TAB PO SCH (21:00)
--- NOTE | 2023-01-06 06:13 | Orthopedic Progress Note ---
Date of Service January 06, 2023 Assessment & Plan (1) Rupture patellar tendon: I described with him the procedure as well as postoperative expectations. I do want him to stay in the knee brace locked in full extension for the next 6 weeks. He can be weightbearing as tolerated while locked in full extension. I really want to give this a chance to heal. He is on Plavix and Xarelto for DVT prophylaxis. He will be seen by physical therapy today for ambulation and range of motion exercises. He can be discharged home later today. He will follow-up orthopedics in [address] weeks[address] Driss Anguiano was seen and examined at bedside this morning. Overall is doing fairly well. He is not having much pain in the left knee. He has not been out of bed yet. He has no complaints.. Review of Systems All systems reviewed & are unremarkable except as noted in HPI & below. Physical Exam On physical examination of the left knee, the dressing is clean and dry. He is in a knee brace locked in full extension.. Results & Data Results & Data Laboratory Results . Diagnostic Findings . PG Care Time/CCT Total # of Minutes Spent Total Time Spent with Patient: Total time spent is greater than 50% in coordination of care (as documented) at patient's floor/unit and/or counseling patient: Coding Level of Care Code 66128 Post Operative Follow-Up Diagnoses Rupture patellar tendon S86.819A
--- NOTE | 2023-01-06 06:14 | Discharge Summary ---
Date of Service January 06, 2023 Principal Diagnosis Same as "Discharge Diagnosis" noted below under Discharge Instructions. Discharge Exam On physical examination of the left knee, the dressing is clean and dry. He is in a knee brace locked in full extension.. Discharge Data Procedures Performed Operation Date: 01/05/23 13:00 Actual Procedures p Left Patellar Tendon Repair(Left) - Chi Pennington DO Ordered Studies 01/05/23 05:00 US - OR guided needle placemen Routine 01/05/23 13:05 US - OR guided needle placemen Routine Hospital Course (1) Rupture patellar tendon: On January 05, 2023 Silvio arrived at [facility] and underwent a patella tendon repair without complication. Postoperatively he was placed in a knee brace locked in full extension and transferred to the general orthopedic floors. His hospital course was uneventful. On postop day #1, his vital signs were stable and his pain was well controlled. He was able to participate well with physical therapy. He can be weightbearing as tolerated with the knee locked in full extension. He is on Plavix and Xarelto for DVT prophylaxis. He can be discharged home later today. He will follow with orthopedics in 2 weeks. PG Care Time/CCT Total # of Minutes Spent Total Time Spent with Patient: Total time spent is greater than 50% in coordination of care (as documented) at patient's floor/unit and/or counseling patient: Discharge Plan Discharge Items Patient Disposition: Home - Home Health Services Reason For Visit: POST OP Discharge Diagnosis: Left patella tendon repair Activity: Per Instructions section Non-emergency contact: Surgeon Call non-emergency contact if: your wound has increased redness and your wound has increased drainage Follow-up/Referrals: Poncho Vargas M.D. [Primary Care Provider] - Diet: Regular Addtl Attending Provider Instructions: ORTHOPEDIC INSTRUCTIONS Activity Recommendations: Weight-bear as tolerated with the knee in full extension at all times in the knee immobilizer. Medications: Continue your Plavix and Xarelto as prescribed. Take cefadroxil for a total of 10 days after surgery. Take the prescribed pain medications as needed. Dressing Care: You may do daily dry dressing changes. Showering: You may shower 5 days from the day of surgery as long as the incisions are not draining. Do not soak the incision. Let soapy water run over the celio and pat them dry. Things To Watch For: 1. Drainage from the incision site that occurs more than one week after your surgery. 2. Increased redness at the incision site. 3. Fever above 102 degrees Fahrenheit. 4. Unusual chest pain or shortness of breath. 5. Call [facility] at with any of the above problems Follow-Up Visit: Follow-up with Dr. Pennington's PA (Chi Ireland) 2-3 weeks after your day of surgery. He will remove your celio and answer any questions. If you have any additional questions or concerns, Dr Pennington is usually in the office at the same time and will be available Please call the office to set up an appointment for a time that works for you. Pending Studies at Discharge: No Stand-Alone Forms: My [facility] Medications and DC Order Prescriptions: New cefadroxil 500 mg capsule 500 mg PO BID 10 Days Qty: 20 0RF hydrocodone-acetaminophen 10-325 mg tablet 1 tab PO Q6H PRN (Reason: pain) Qty: 30 0RF Continued hydrocodone-acetaminophen 10-325 mg Tablet 1 tab PO Q6H PRN (Reason: Pain) Qty: 30 0RF cefadroxil 500 mg capsule 500 mg PO BID 10 Days Qty: 20 0RF multivitamin Tablet 1 tab PO QAM carvedilol [Coreg] 6.25 mg Tablet 6.25 mg PO BID Rx Instructions: must administer with a meal/food clopidogrel 75 mg Tablet 75 mg PO QAM levothyroxine 50 mcg Tablet 50 mcg PO QAM losartan 25 mg Tablet 25 mg PO QAM niacin 500 mg Tablet 500 mg PO QPM rosuvastatin 10 mg Tablet 10 mg PO HS cholecalciferol (vitamin D3) [Vitamin D3] 50 mcg (2,000 unit) Capsule 50 mcg PO HS Xarelto 10 mg Tablet 10 mg PO QAM Discontinued oxycodone-acetaminophen [Percocet] 5-325 mg tablet 1 tab PO Q6H PRN (Reason: pain) Qty: 30 0RF Patient Comments: only takes 1/2 tablet Admission Data Admit Date/Time: 01/05/23 16:05 Attending Provider: Chi Pennington Admit Provider: Chi Pennington Primary Care Provider: Poncho Vargas
[2023-01-06] MEDS ORDERED: LEVOTHYROXINE SODIUM 50 MCG TABLET PO SCH (06:30)
[2023-01-06] MEDS: carvediloL 6.25 MG TAB PO SCH (08:08)
[2023-01-06] MEDS: oxyCODONE HCL IR 5 MG TAB (IMMEDIATE RELEASE) PO PRN (08:11)
[2023-01-06] MEDS ORDERED: RIVAROXABAN 10 MG TABLET PO SCH (09:00)
[2023-01-06] MEDS ORDERED: CLOPIDOGREL BISULFATE 75 MG TAB PO SCH (09:00)
[2023-01-06] MEDS ORDERED: LOSARTAN POTASSIUM 25 MG TAB PO SCH (09:00)
--- NOTE | 2023-01-21 16:46 | Operative Report ---
PG Post Operative Report Pre & Post Diagnosis Operation Date: 01/05/23 13:00 Pre-Op Diagnosis: Left Patellar Tendon Rupture Post-Op Diagnosis: Left Patellar Tendon Rupture I identified the patient and participated in the time-out.: Yes Procedure Operation Date: 01/05/23 13:00 Actual Procedures p Left Patellar Tendon Repair(Left) - Chi Pennington DO Surgeon Chi Pennington DO Snuff Grinder Chi Ireland PA-C Estimated Blood Loss 30 Findings Consistent with Post-Op Diagnosis Specimens None Description of Procedure On January 05, 2023 Silvio arrived at [facility] for the above procedure. He was seen in the preoperative holding area and the operative extremity was identified and signed. He was given a preoperative antibiotic. He was taken back the operative room and laid on the table in supine position. He was put under general anesthesia. The right knee was prepped and draped in sterile fashion. A timeout was done. The patient and the operative extremity was properly identified. The previous midline incision was opened back up. Dissection was taken down directly to the extensor mechanism. There was a tear of the inferior pole the patella. There is also some tearing of the medial lateral retinaculum. The joint was opened up through the fracture. There was no signs of infection. The joint was vigorously irrigated. The edges of the fracture were better exposed. There is a very small portion of the inferior pole the patella. This was then excised. The patella tendon was then whipstitched with Arthrex labral tapes. The sutures were then passed through 1 of 3 holes made in the patella. The sutures were then brought out through the superior pole the patella. All sutures were then tied. This tighten the patella tendon back to the patella. The knee was flexed to about 30 degrees before there was significant tension on the repair. The medial and lateral retinaculum were then repaired with #1 Vicryl suture. The skin was then closed with 2-0 Vicryl, 3 oh V-Loc suture, and celio. He was then placed in a soft dressing and a knee immobilizer. He was then extubated and transferred to a hospital bed. He was taken to the postanesthesia care unit in stable condition. He tolerated the procedure well. Chi Ireland PA-C, was present for the entire procedure. He was critical for pa tient positioning, prepping, draping, retraction exposure, wound closure and application of sterile dressing. I attest to the content of the Intraoperative Record and any orders documented therein. Any exceptions are noted below.
== END 2023-01-06 14:16 | disposition home health service (06) ==
LOC: 3N 10:54 → ASU 10:54